=== PATIENT | female | born 1970 | race Caucasian/White ===

== ENCOUNTER 2024-11-26 14:23 | Emergency (ER) | payer BC, SELFPAY ==
--- OUTSIDE RECORDS SUMMARY | 2024-11-26 14:25 | XMS_ITS | Encounter Summary ---
Author Organization [facility] Address [address] [place] [address] Care Team Providers Care Staff Pharmacist Hospital Name Role Phone Raffaele Tanner MD Primary Care Provider [phone] Encounter Details Date Type Department Care Team (Latest Contact Info) Description 09/01/2008 Outpatient Historical [facility] Raffaele Gallegos MD [address] 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 Gender Identity Not on file Sexual Orientation Not on file documented as of this encounter Plan of Treatment Upcoming Encounters Date Type Department Care Team (Late st Contact Info) Description 01/09/2025 1:10 PM CDT Appointment [facility] [place] [facility] [address] [facility] [address] [place] [address] Raffaele Tanner MD [address] [place] [phone] documented as of this encounter Visit Diagnoses Diagnosis Elderly multigravida with antepartum condition or complication Visit for screening mammogram Other screening mammogram documented in this encounter Care Teams Staff Pharmacist Hospital Relationship Specialty Start Date End Date Raffaele Tanner MD PCP - General Internal Medicine 09/11/11 documented as of this encounter
--- OUTSIDE RECORDS SUMMARY | 2024-11-26 14:25 | XMS_ITS | Encounter Summary ---
Author Organization [facility] Address [address] [place] [address] Care Team Providers Care Brand Analyst Name Role Phone Raffaele Tanner MD Primary Care Provider [phone] Encounter Details Date Type Department Care Team (Latest Contact Info) Description 12/24/2005 Inpatient Historical [facility] Raffaele Gallegos MD [address] 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 Gender Identity Not on file Sexual Orientation Not on file documented as of this encounter Plan of Treatment Upcoming Encounters Date Type Department Care Team (Late st Contact Info) Description 01/09/2025 1:10 PM CDT Appointment [facility] [place] [facility] [address] [facility] [address] [place] [address] Raffaele Tanner MD [address] [place] [phone] documented as of this encounter Procedures Procedure Name Priority Date/Time Associated Diagnosis Comments CBC WITH DIFFERENTIAL Routine 12/23/2005 11:09 AM CDT CBC WITH DIFFERENTIAL Routine 12/23/2005 11:09 AM CDT URINALYSIS W/REFLEX MICROSCOPIC Routine 12/23/2005 11:09 AM CDT documented in this encounter Results * URINALYSIS (12/23/2005 11:09 AM CDT) COLOR UA Yellow INTERFACE SYSTEM CLARITY UA Clear Clear INTERFACE SYSTEM SPECIFIC GRAVITY UA 1.015 1.001 - 1.035 INTERFACE SYSTEM PH UA 6.5 5.0 - 8.0 INTERFACE SYSTEM LEUKOCYTE ESTERASE UA Negative Negative INTERFACE SYSTEM NITRITE UA Negative Negative INTERFACE SYSTEM PROTEIN UA Negative Negative INTERFACE SYSTEM GLUCOSE UA Negative Negative INTERFACE SYSTEM KETONES UA Negative Negative INTERFACE SYSTEM UROBILINOGEN UA <1 <=1 mg/dL INTE RFACE SYSTEM BILIRUBIN UA Negative Negative INTERFA CE SYSTEM BLOOD UA Negative Negative INTERFACE SYSTEM 12/23/2005 11:0 9 AM CDT Raffaele Gallegos MD URINE ORDERABLES Final Resul t Performing Organization Address [facility] Phone Number INTERFACE SYSTEM Refer to clinic/hospital department * CBC WITH DIFFERENTIAL (12/23/2005 11:09 AM CDT) NEUTROPHILS 70 45 - 70 % INTERFAC E SYSTEM LYMPHOCYTES 19 16 - 45 % INTERFAC E SYSTEM MONOCYTES 10 3 - 13 % INTERFACE SYSTEM EOSINOPHILS 1 0 - 7 % INTERFAC E SYSTEM BASOPHILS 0 0 - 2 % INTERFACE SYSTEM NEUTROPHIL ABSOLUTE 6.57 1.90 - 7.00 K/uL INTERFACE SYSTEM LYMPHOCYTE ABSOLUTE 1.74 0.70 - 4.50 K/uL INTERFACE SYSTEM MONOCYTE ABSOLUTE 0.90 0.10 - 1.30 K/uL INTERFACE SYSTEM EOSINOPHIL ABSOLUTE 0.08 0.00 - 0.70 K/uL INTERFACE SYSTEM BASOPHILS ABSOLUTE 0.03 0.00 - 0.20 K/uL INTERFACE SYSTEM 12/23/2005 11:0 9 AM CDT Raffaele Gallegos MD HEMATOLOGY ORDERABLES Final Result Performing Organization Address [facility] Phone Number INTERFACE SYSTEM Refer to clinic/hospital department * CBC WITH DIFFERENTIAL (12/23/2005 11:09 AM CDT) WBC 9.3 4.0 - 9.8 K/uL INTERFACE SYSTEM RBC 4.23 3.90 - 4.90 M/uL INTERFACE SYSTEM HEMOGLOBIN 12.7 11.8 - 14.8 g/dL INTERFACE SYSTEM HEMATOCRIT 37.1 35.5 - 44.0 % INTERFACE SYSTEM MCV 87.7 82.0 - 99.0 fL INTERFACE SYSTEM MCH 30.0 27.2 - 32.6 pg INTERFACE SYSTEM MCHC 34.2 31.5 - 35.5 % INTERFACE SYSTEM RDW 13.3 11.5 - 14.5 % INTERFACE SYSTEM RDW-STDEV 42.6 37.1 - 48.7 fL INTERFACE SYSTEM PLATELETS 254 140 - 350 K/uL INTERFACE SYSTEM MPV 11.2 9.3 - 12.4 fL INTERFACE SYSTEM 12/23/2005 11:0 9 AM CDT Raffaele Gallegos MD HEMATOLOGY ORDERABLES Final Result INTERFACE SYSTEM Refer to clinic/hospital department documented in this encounter Visit Diagnoses Diagnosis Previous delivery, delivered, with or without mention of antepartum condition- Primary Visit for screening mammogram Other screening mammogram documented in this encounter Care Teams Brand Analyst Relationship Specialty Start Date End Date Raffaele Tanner MD PCP - General Internal Medicine 09/11/11 documented as of this encounter
--- OUTSIDE RECORDS SUMMARY | 2024-11-26 14:25 | XMS_ITS | Data Portability ---
Author Organization [facility] JACKYKyle Bourne Glory Address [address] [facility] [place] [address] Care Team Providers Care Whipped Topping Mixer Name Role Phone MADELAINE TANNER Primary Care Provider [phone] Assessment Encounter Date Assessment Date Assessment LastModified by Organization Details LastModified Time 09/19/2024 09/19/2024 we will obtain her blood work that she had we will set up with Cologuard and she will get some exercises online for piriformis syndrome if she is not better in a few weeks she will report back and let me know otherwise she will see me in a year Not available 09/25/2024 15:36:09 Plan of Treatment Reminders Order Date Submit Date Provider Last Modified By Organization Details Last Modified Time Details Appointments ANNUAL 30 2025 01:00P Kyler Tanner MD Not available Not available Not available Lab noninvasi ve colorecta l cancer DNA + occult blood screening , QL, stool 2024 025 [facility] ipsy (Cologuard Orders Only), [address], [address], [place], [address], 10/08/2024 10:16:03 Referral None recorded. Procedures None recorded. Surgeries None recorded. Imaging None recorded. Medication Orders None recorded. Patient TargetsNo targets recorded. Patient InstructionsNo instructions recorded. Reason for Referral None Reported. Results Created Date Observation Date Name Description Value Unit Range Abnormal Flag Note LastModifiedBy Organization Detail LastModifiedTime 10/03/19 25 10/03/2024 COLOG UARD cologuard result reportable NEGATI VE negati ve normal NEGAT TIM TEST RESUL T. A negat tim Colog uard resul t indic ates a low likel ihood that a color ectal cance r (CRC) or advan sendy adeno ma (diana omato us polyp s with more advan sendy pre-m align ant featu res) is prese nt. The chanc e that a perso n with a negat tim Colog uard test has a color ectal cance r is less than 1 in 1500 (nega tive predi ctive value >99.9 %) or has an advan sendy adeno ma is less than 5.3% (nega tive predi ctive value 94.7% ). These data are based on a prosp ectiv e cross -sect ional study of ,00 0 indiv idual s at [facility] risk for color ectal cance r who were scree olga with both Colog uard and colon oscop y. (Pasha Mccallum et al, N Engl J Med 2014; 370(1 4):12 86-12 97) The breanne l value (refe rence range ) for this assay is negat tim. COLOG UARD RE-SC JEF HAMMOND RECOM MENDA TION: Perio dic color ectal cance r scree randall is an impor tant part of preve ntive healt hcare for asymp tomat ic indiv idual s at siler ge risk for color ectal cance r. Follo wing a negat tim Colog uard resul t, the Ameri can Cance r Socie ty and U.S. Multi -Soci ety Task Force scree randall guide lines recom mend a Colog uard re-sc reesheryl ng inter joce of 3 years . Refer ences : Ameri can Cance r Socie ty Guide line for Color ectal Cance r Scree randall: https ://venkat w.can cer.o rg/ca ncer/ colon -rect al-ca ncer/ detec tion- diagn osis- stagi ng/ac s-rec ommen datio ns.ht ml.; Anderson COYLE, Rasheeda hoyos CR, Radha CoatsK, Color ectal Cance r Scree randall: Recom menda tions for Physi cians and Patie nts from the U.S. Multi -Soci ety Task Force on Color ectal Cance r Screronald pereira , Am J Olivia muñoznte rolog y 2017; 112:1 016-1 030. TEST DESCR IPTIO N: Chase site algor ithmi c karsten sis of stool DNA-b jf sifuentes with hemog lobin immun oassa y. Quant itati ve value s of indiv idual bioma rkers are not repor table and are not assoc iated with indiv idual bioma rker resul t refer ence range s. Colog uard is inten ded for color ectal cance r scree randall of adult s of eithe r sex, 45 years or older , who are at [facility] for color ectal cance r (CRC) . Colog uard has been appro lore for use by the U.S. FDA. The perfo rmanc e of Colog uard was estab lishe d in a cross secti onal study of [facility] adult s aged 50-84 . Colog uard perfo rmanc e in patie nts ages 45 to 49 years was estim ated by sub-g roup karsten sis of near- age group s. Colon oscop ies perfo rmed for a posit tim resul t may find as the most clini freddy signi ximena t lesio n: color ectal cance r [4.0% ], advan sendy adeno ma (incl uding sessi le gisela herb polyp s great er than or equal to 1cm diame ter) [20%] or non- advan sendy adeno ma [31%] ; or no color ectal neopl ronan [45%] . These estim ates are deriv ed from a prosp ectiv e cross -sect ional scree randall study of 10,00 0 indiv idual s at [facility] risk for color ectal cance r who were scree olga with both Colog uard and colon oscop y. (Pasha Carmona al, N Engl J Med 2014; 370(1 4):12 86-12 97.) Colog uard may produ ce a false negat tim or false posit tim resul t (no color ectal cance r or preca ncero us polyp prese nt at colon oscop y follo w up). A negat tim Colog uard test resul t does not guara ntee the absen ce of CRC or advan sendy warren mensah (pre- cance r). The curre nt Colog uard scree randall inter joce is every 3 years . (Amer ican Cance r Socie ty and U.S. Multi -Soci ety Task Force ). Colog uard perfo rmanc e data in a 10,00 0 patie nt pivot al study using colon oscop y as the refer ence metho d can be acces sed at the follo wing locat ion: www.e xactl abs.c om/re sults . Addit ional descr iptio n of the Colog uard test proce ss, warni ngs and preca ution s can be found at www.c ologu flores.c om. Not Available ipsy (Cologuard Orders Only) [address], [place], [address], 10/08/2024 10:16:03 11/12/19 25 11/10/2024 CT, coron gerson calci um score No observ ation record ed. [facility] [address], [place], [address], 11/17/2024 12:19:25 Result Notes None recorded. Procedures Surgical History Date Name Laterality Status Provider Name and Address Organization Details Recorded Time 08/24/19 09 section completed SAGE Denis [facility] 09/19/2024 14:55:59 08/24/19 06 section completed SAGE Denis [facility] 09/19/2024 14:55:56 08/24/19 04 section completed SAGE Denis [facility] 09/19/2024 14:55:53 08/24/18 88 Tonsillectomy completed SAGE Denis - [facility] 09/19/2024 14:56:10 Imaging Results Imaging Date Name Status LastModified by Organiz ation Details LastModified Time 11/10/2024 CT, coronary calcium score completed [facility] [address], [place], [address], 11/17/2024 12:19:25 Procedure Notes None recorded. Medical Equipment None Reported. Allergies No known drug allergies Medications Name Sig Start Date Stop Date Status Note LastModified by Organization Details LastModified Time ergocalciferol (vitamin D2) 1,250 mcg (50,000 unit) capsule TAKE 1 CAPSULE BY MOUTH ONCE A WEEK active Not Available Not Available No t Available Vitals Date Recorded Body height Body mass index (BMI) Body weight Heart rate Oxygen saturation Oxygen saturation in Arterial blood by Pulse oximetry Systolic blood pressure Diastolic blood pressure Provider Name and Address Organization Details Last Updated DateTime 163.83 cm 22.2 kg/m2 85074.7 6 g 72 /min 97 % 97 % 120 mm[Hg] 64 mm[Hg] Nohemy Doss MA [facility] 15:05:15 Social History Question Answer Notes LastModified by Organizat ion Details LastModified Time Tobacco Smoking Status Never Smoker Nohemy Doss MA null, [facility] 09/19/2024 14:57:46 Do You Have An Advance Directive? Yes Information n ot available 09/19/2024 What Is Your Level Of Alcohol Consumption? Occasional Information not available 09/19/2024 Are You Blind Or Do You Have Difficulty Seeing? No Information n ot available 09/19/2024 What Is Your Level Of Caffeine Consumption? Occasional Information not available 09/19/2024 In The 14 Days Before Symptom Onset, Have You Had Close Contact With A Laboratory-confirm ed COVID-19 While That Case Was Ill? No Information n ot available 09/19/2024 In The 14 Days Before Symptom Onset, Have You Had Close Contact With A Person Who Is Under Investigation For COVID-19 While That Person Was Ill? No Information not available 09/19/2024 Have You Been To An Area Known To Be High Risk For COVID-19? No Information not available 09/19/2024 Are You Currently Employed? No Information not available 09/19/2024 Are You Deaf Or Do You Have Serious Difficulty Hearing? No Information not available 09/19/2024 What Type Of Diet Are You Following? REGULAR Information n ot available 09/19/2024 What Is The Highest Grade Or Level Of School You Have Completed Or The Highest Degree You Have Received? [id number] Information not available 09/19/2024 Are There Any Guns Present In Your Home? No Information not available 09/19/2024 What Was The Date Of Your Most Recent Tobacco Screening? 09/19/2024 Information not available 09/19/2024 What Is Your Relationship Status? Information not available 09/19/2024 Do You Use Your Seat Belt Or Car Seat Routinely? Yes Information not available 09/19/2024 Do You Have Smoke And Carbon Monoxide Detectors In Your Home? Yes Information not available 09/19/2024 Do You Feel Stressed (tense, Restless, Nervous, Or Anxious, Or Unable To Sleep At Night)? [id number] Information not available 09/19/2024 Do You Use Any Illicit Or Recreational Drugs? No Information not available 09/19/2024 Do You Use Sunscreen Routinely? Yes Information not available 09/19/2024 Has Tobacco Cessation Counseling Been Provided? No Information not available 09/19/2024 Do You Or Have You Ever Used Any Other Forms Of Tobacco Or Nicotine? No Information not available 09/19/2024 Sex: Female Functional Status Question Answer Note LastModified by Organization D etails LastModified Time Are you able to care for yourself? Yes Information n ot available 09/19/2024 What is your exercise level? None Information not available 09/19/2024 Mental Status None recorded. Family History Relationship Description Onset Age of this Age Resolved Age Notes LastModified by Organization Details LastModified Time Mother Malignant tumor of breast mebyma Not available 2024 14:56:42 Mother Disorder of thyroid gland mebyma Not available 2024 14:56:48 Mother Suspected endometrial cancer mebyma Not available 2024 14:57:32 Father Myocardial infarction mebyma Not available 09/19 14:57:01 Medical History Condition Response Coronary Artery Disease N Other N Atrial Fibrillation N High Blood Pressure N Kidney or Bladder Problems N Thyroid Problems N GI Problems N Depression N COPD N Blood Clots N Have you had a mammogram in the last yea r? N Skin Problems N Anemia N Heart Attack (ID) N Anxiety Disorder N Diabetes N Muscle, Joint, or Bone Problems N Seizures/Epilepsy N Have you had a colonoscopy in the last 1 0 years? N Acid Reflux (GERD) N Cancer N Stroke N Asthma Y Allergies N Have you had a PSA blood test in the las t year? N High Cholesterol N Hepatitis N Liver Disease N Headaches N Heart Failure N Osteoporosis N Gynecological HistoryNo gynecological history recorded. Obstetrics History GPAL:G 0 P 0 0 0 0 Immunizations Vaccine Type Date Status Note Provider Nam e and Address Organization Details Recorded Time Influenza, MDCK, quadrivalent, PF 1 completed Jonnie Tovar [place] null, [place] - [facility] 09/19/2024 16:05:33 Influenza, MDCK, quadrivalent, PF 3 completed Jonnie Tov[place] [facility] 09/19/2024 16:05:33 Influenza, MDCK, quadrivalent, PF 2 completed Jonnie Tov[place] [facility] 09/19/2024 16:05:33 zoster recombinant 3 completed SAGE Zavala, [place] [facility] 09/19/2024 16:05:33 zoster recombinant 2 completed Jonnie Tovar [place] [facility] 09/19/2024 16:05:33 COVID-19, mRNA, LNP-S, PF, 30 mcg/0.3 mL dose 1 completed Jonnie Tov[place] [facility] 09/19/2024 16:05:33 COVID-19, mRNA, LNP-S, PF, 30 mcg/0.3 mL dose 1 completed Jonnie Tov[place] [facility] 09/19/2024 16:05:33 COVID-19, mRNA, LNP-S, PF, 30 mcg/0.3 mL dose 1 completed Jonnie Tov[place] [facility] 09/19/2024 16:05:33 Influenza, split virus, trivalent, preservative 5 completed Jonnie Tovar [place] [facility] 09/19/2024 16:05:33 Influenza, split virus, trivalent, preservative 4 completed Jonnie Tov[place] [facility] 09/19/2024 16:05:33 Influenza, split virus, quadrivalent, PF 0 completed Jonnie [place]ov[place] [facility] 09/19/2024 16:05:33 Influenza, split virus, quadrivalent, PF 7 completed Jonnie Tvoar [place] [facility] 09/19/2024 16:05:33 Influenza, split virus, quadrivalent, PF 6 completed Jonnie Tov[place] [facility] 09/19/2024 16:05:33 Influenza, split virus, quadrivalent, PF 5 completed Jonnie Tov[place] [facility] 09/19/2024 16:05:33 Influenza, split virus, quadrivalent, PF 9 completed Jonnie Tov[place] [facility] 09/19/2024 16:05:33 Influenza, split virus, quadrivalent, PF 8 completed Jonnie Tovar [place] [facility] 09/19/2024 16:05:33 Past Encounters Encounter ID Performer Location Encounter Start Date Encounter Closed Date Diagnosis/Indication Diagnosis SNOMED-CT Code Diagnosis ICD10 Code Diagnosis Note [id number] Madelaine Tanner MD [facility] [place] [facility] [address] [place] [address] 09/19/2024 14:48:24 09/19/2024 15:59:41 Body mass index 20-24 - normal 683634693 Z68.22 Screening for malignant neoplasm of colon 866974643 Z12.11 Adult heal th examination 201766719 Z00.00 Left-sided piriformis syndrome 4547929686 62411 M54.32 Health Concerns Section Related Observation LastModified by Organization Detai ls LastModified Time None Recorded Concern Status LastModified by Organization Details LastModified Time None Recorded Advance Directives Directive Y: Payers Encounter Date Sequence Insurance Name Policy Number Policy Stout Covered Member ID Stout Member ID Guarantor Name 09/19/2024 1 [facility]: (PPO) [id number] [place] [id number] Rebeka Prabhakar Hosea Notes Date Note Type Note Provider Name and Address Organization Details Recorded Time 09/19/2024 text/html annual visit 53-year-old otherwise healthy comes in to [facility] care meds none allergies none surgeries tonsillectomy remote history of some asthma family history mother had breast cancer endometrial cancer and some thyroid disorder father with a history of ID she is does not smoke occasionally drinks no illicit drug use last [facility] was [facility], 20[facility] [place] has a little pain in her left buttock area that for several weeks that is feel like a tight not maybe radiates down the back of the leg from time to time hurts at times to sit on the buttock Madelaine Tanner MD Attn: Accounting[address] [facility], [place], [address], [facility] 09/25/2024 15:36:40 OBGyn Episode No OBEpisode recorded.
--- OUTSIDE RECORDS SUMMARY | 2024-11-26 14:25 | XMS_ITS | Data Portability ---
Author Organization [place] [facility] [employer], Main Office Address [address] [place] [address] Assessment Encounter Date Assessment Date Assessment LastModified by Organization Details LastModified Time 11/06/2022 11/06/2022 Blood work has been reviewed she will read double efforts on her vitamin-D her OLIVER was positive but not tired reflex panel to multiple autoimmune antibodies negative mild elevation of Sjogren's antibody [email or web address] Not available 11/06/2022 23:08:29 12/11/2022 12/11/2022 Some tizanidine to use at night continue with her stretching program x-ray her lumbar spine I told her given about 3 or 4 weeks if not better call back for re-evaluation and she is [email or web address] Not available 12/11/2022 14:02:05 Plan of Treatment Reminders Order Date Submit Date Provider Last Modified By Organization Details Last Modified Time Details Appointments None recorded. Lab None recorded. Referral None recorded. Procedures None recorded. Surgeries None recorded. Imaging None recorded. Medication Orders tizanidine 4 mg tablet 2022 023 [facility] [address] [facility], [place], [address], 12:08:19 Patient TargetsNo targets recorded. Patient InstructionsNo instructions recorded. Reason for Referral None Reported. Results Created Date Observation Date Name Description Value Unit Range Abnormal Flag Note LastModifiedBy Organization Detail LastModifiedTime 11/07/1911/07/2023 COLOG UARD cologuard result Cancel led - Order d not applic able Not Available [facility] (Cologuard Orders Only) [address], [place], [address], 11/07/2023 08:11:18 11/08/19 23 10/14/2022 MAMMO , scree randall, digit al, bilat eral No observ ation record ed. [email or web address] [facility] [address] [facility], [place], [address], 12/11/2022 12:47:21 Result Notes None recorded. Problems Name Problem SNOMED Code Status Onset Date Resolution Date Notes Provider Name and Address Organization Details Recorded Time Pain 13157768 Active Not Available [facility] [place] [facility] 3 14:47:09 Adult health examination Active 2021 Not Available [facility] [place] [facility] 3 14:47:10 Vitamin D deficiency 85488817 Active Not Available [facility] [place] [facility] 3 14:47:10 Pain in coccyx 84902989 Active Not Available [facility] [place] [facility] 3 14:47:10 Cough 44828069 Active Not Available [facility] [place] [facility] 3 14:47:10 Nasal congestion 82382438 Active Not Available [facility] [place] [facility] 3 14:47:10 Fatigue 66825587 Active 2022 Not Available [facility] [place] [facility] 3 14:47:10 Backache 436189176 Active 2022 LITTLE Zavala, [facility] [employer] [facility] 3 11:39:56 Low back pain 882324056 Active 2022 LITTLE Zavala, [employer] [facility] [employer] [facility] 3 14:15:37 Problem Notes None recorded. Procedures Surgical History Date Name Laterality Status Provider Name and Address Organization Details Recorded Time section completed Not Available [facility] 10/22/2022 14:44:28 Imaging Results Imaging Date Name Status LastModified by Organiz ation Details LastModified Time 10/14/2022 MAMMO, screening, digital, bilateral completed [email or web address] [facility] [address] [facility], [place], [address], 12/11/2022 12:47:21 Procedure Notes None recorded. Medical Equipment None Reported. Allergies No known drug allergies Medications Name Sig Start Date Stop Date Status Note LastModified by Organization Details LastModified Time nystatin 100,000 unit/mL oral suspension swish and swallow 5 ml tid x 7 days 06/25 completed Not Available Not Available Not Available azithromyci n 250 mg tablet TK 2 TS PO FOR 1 DAY THEN TK 1 T PO D FOR 4 DAYS 12/12 completed Not Available Not Available Not Available tizanidine 4 mg tablet TAKE 1 TABLET BY MOUTH ONCE DAILY AT BEDTIME active Not Available Not Available No t Available prednisone 20 mg tablet TK 3 TS D FOR 3 DAYSTHEN 2 TS D [id number] T D X3DAYS active Not Available Not Available No t Available Zyrtec 10 mg tablet Take 1 tablet every day by oral route. 2020 active Not Available Not Available Not Avai lable Protopic 0.1 % topical ointment 08/03 completed Not Available Not Available Not Available Valium 2 mg tablet take 1/2 tablet 40 minutes before procedure 07/05 completed Not Available Not Available Not Available montelukast 10 mg tablet TAKE 1 TABLET BY MOUTH EVERY DAY active Not Available Not Available No t Available ergocalcife rol (vitamin D2) 1,250 mcg (50,000 unit) capsule TK 1 C PO Q WK 10/02 completed Not Available Not Available Not Available clobetasol 0.05 % topical ointment 08/02 completed Not Available Not Available Not Available azelastine 137 mcg (0.1 %) nasal spray USE 2 SPRAY(S) IN EACH NOSTRIL TWICE DAILY active Not Available Not Available No t Available methylpredn isolone 4 mg tablets in a dose pack FPD 12/12 completed Not Available Not Available Not Available albuterol sulfate HFA 90 mcg/actuati on aerosol inhaler INHALE 2 PUFFS BY MOUTH EVERY 4 TO 6 HOURS NEEDED PER ASHTMA ACTION PLAN FOR 30 DAYS active Not Available Not Available No t Available spironolact one 50 mg tablet TK 1 T PO D 09/03 completed Not Available Not Available Not Available Spiriva with HandiHaler 18 mcg and inhalation capsules Inhale 1 capsule every day by inhalatio n route. 06/25 completed Not Available Not Available Not Available multivitami n WOMENS ONE BY MOUTH DAILY 2015 active Not Available Not Available Not Avai lable Calcium 600 + D(3) 600 mg-125 unit tablet Take by oral route. 10/02 completed Not Available Not Available Not Available Symbicort 80 mcg-4.5 mcg/actuati on HFA aerosol inhaler Inhale 2 puffs twice a day by inhalatio n route. active Not Available Not Available No t Available Atralin 0.05 % topical gel 07/19 completed Not Available Not Available Not Available Vitamin D 2,000 unit capsule Take 1 capsule every day by oral route. 2020 active Not Available Not Available Not Avai lable Aczone 5 % topical gel 12/12 completed Not Available Not Available Not Available Aczone 08/03 completed Not Available Not Available Not Available Acanya 1.2 %-2.5 % topical gel APPLY A PEA-SIZED AMOUNT BY TOPICAL ROUTE ONCE DAILY TO LIGHTLY COVERTHE ENTIRE FACE 08/03 completed Not Available Not Available Not Available B12 1000mg 2-3x a wk 2020 active Not Available Not Available Not Avai lable omega 3 183.3 mg-dha 75 mg-epa 91.6 mg-fish oil 306 mg capsule Take by oral route. 07/19 completed Not Available Not Available Not Available Retin-A Micro Pump 0.08 % topical gel APPLY A PEA-SIZED AMOUNT TO FACE EVERY NIGHT AT BEDTIME 11/13 completed PRN Not Available Not Available Not Available Flonase Allergy Relief 11/13 completed Not Available Not Available Not Available Aczone 7.5 % topical gel with pump APPLY TO ACNE AREAS EVERY NIGHT AT BEDTIME PRN 11/13 completed Not Available Not Available Not Available Onexton 1.2 % (1 % base)-3.75 % topical gel with pump APPLY TO ACNE AREAS EVERY MORNING PRN 11/13 completed Not Available Not Available Not Available Yuvafem 10 mcg vaginal tablet INSERT ONE TABLET VAGINALLY TWICE WEEKLY. LAST REFILL UNTIL PATIENT IS SEEN IN THE OFFICE active Not Available Not Available No t Available Fluzone Quad (PF) 60 mcg (15 mcg x 4)/0.5 mL IM syringe ADM 0.5ML IM UTD 11/06 completed Not Available Not Available Not Available Vitals Date Recorded Body mass index (BMI) Body height Oxygen saturation Oxygen saturation in Arterial blood by Pulse oximetry Heart rate Body temperature Body weight Systolic blood pressure Diastolic blood pressure Provider Name and Address Organization Details Last Updated DateTime 2 21.6 kg/m2 163.83 cm 98 % 98 % 76 /min 97.6 [degF] 24446.8 2 g 120 mm[Hg] 76 mm[Hg] Not Available [facility] [place] [facility] 3 14:45:46 Date Recorded Body height Body mass index (BMI) Body weight Body temperature Heart rate Systolic blood pressure Diastolic blood pressure Provider Name and Address Organization Details Last Updated DateTime 3 163.83 cm 21.3 kg/m2 64122.6 4 g 98.4 [degF] 85 /min 100 mm[Hg] 72 mm[Hg] Aarnza encarnacion RN [facility] [employer] 3 11:44:20 Date Recorded Body height Body mass index (BMI) Body weight Body temperature Heart rate Systolic blood pressure Diastolic blood pressure Provider Name and Address Organization Details Last Updated DateTime 3 163.83 cm 21.5 kg/m2 43276.2 3 g 98.2 [degF] 85 /min 104 mm[Hg] 70 mm[Hg] LITTLE Vazquez [employer] 3 11:04:30 Social History Question Answer Notes LastModified by Organizat ion Details LastModified Time Tobacco Smoking Status Never Smoker LITTLE Zavala [employer] [facility] [employer] 12/11/2022 10:56:06 Do You Have An Advance Directive? Yes [id number] Information not available 10/22/2022 What Is Your Level Of Alcohol Consumption? Occasional Information not available 11/06/2022 What Is Your Level Of Caffeine Consumption? Moderate Information not available 11/06/2022 What Is Your Code Status? Full Code Information not available 12/11/2022 In The 14 Days Before Symptom Onset, Have You Had Close Contact With A Laboratory-confir med COVID-19 While That Case Was Ill? No Information not available 12/11/2022 In The 14 Days Before Symptom Onset, Have You Had Close Contact With A Person Who Is Under Investigation For COVID-19 While That Person Was Ill? No Information not available 12/11/2022 Are You Currently Employed? No Information not available 12/11/2022 What Type Of Diet Are You Following? VEGETARIAN [id number] Information not available 10/22/2022 What Is The Highest Grade Or Level Of School You Have Completed Or The Highest Degree You Have Received? 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 No Information no t available 12/11/2022 What Is The Fluoride Status Of Your Home? Fluoridated Information not available 12/11/2022 Are There Any Guns Present In Your Home? No Information not available 12/11/2022 Do You Use Insect Repellent Routinely? Yes Information not available 12/11/2022 Where Do You Live? [facility] Information not available 12/11/2022 Do You Have A Medical Power Of Crystal Finisher? No Information not available 12/11/2022 What Was The Date Of Your Most Recent Tobacco Screening? 12/11/2022 [email or web address] Information not available 12/11/2022 How Many Children Do You Have? 1 Information not available 12/11/2022 Do You Have Any Pets? Yes Information not available 12/11/2022 What Is Your Relationship Status? Information not available 11/06/2022 Do You Use Your Seat Belt Or Car Seat Routinely? Yes Information not available 12/11/2022 Are You Sexually Active? Yes Information not available 12/11/2022 Do You Have Smoke And Carbon Monoxide Detectors In Your Home? Yes Information not available 12/11/2022 Are You Passively Exposed To Smoke? No Information no t available 12/11/2022 Are There Any Smokers In Your House? No Information not available 12/11/2022 Do You Feel Stressed (tense, Restless, Nervous, Or Anxious, Or Unable To Sleep At Night)? [id number] Information not available 12/11/2022 Do You Use Any Illicit Or Recreational Drugs? No Information not available 12/11/2022 Do You Use Sunscreen Routinely? Yes Information not available 12/11/2022 Has Tobacco Cessation Counseling Been Provided? No Information not available 12/11/2022 Have You Recently Traveled Abroad? No Information not available 12/11/2022 Do You Have Any Dietary Restrictions? No Information not available 12/11/2022 Do You Or Have You Ever Used Any Other Forms Of Tobacco Or Nicotine? No Information not available 12/11/2022 Sex: Female Functional Status Question Answer Note LastModified by Organizat ion Details LastModified Time What is your exercise level? Heavy [id number] Information not available 10/22/2022 Mental Status None recorded. Family History Relationship Description Onset Age of this Age Resolved Age Notes LastModified by Organization Details LastModified Time Mother Family history of malignant neoplasm Not available 11:40:42 Medical History Condition Response NO SIGNIFICANT PAST MEDICAL HISTORY N HAVE YOU BEEN HOSPITALIZED OR SEEN IN [facility] ER IN THE PAST YEAR ? N Gynecological HistoryNo gynecological history recorded. Obstetrics History GPAL:G 0 P 0 0 0 0 Immunizations Vaccine Type Date Status Note Provider [facility] e and Address Organization Details Recorded Time COVID-19, mRNA, LNP-S, PF, 10 mcg/0.2 mL dose, fina-sucrose 1 completed LITTLE Vazquez, [employer] [facility] [employer] 12/11/2022 11:29:36 COVID-19, mRNA, LNP-S, PF, 10 mcg/0.2 mL dose, fina-sucrose 1 completed LITTLE Vazquez, [employer] 12/11/2022 11:29:45 COVID-19, mRNA, LNP-S, PF, 10 mcg/0.2 mL dose, fina-sucrose 1 completed LITTLE Vazquez, [employer] [facility] [employer] 12/11/2022 11:29:52 influenza, unspecified formulation 3 completed LITTLE Zavala, [place] [facility] [employer] [facility] 06/17/2023 11:18:38 zoster, unspecified formulation 3 completed Not Available [facility] 10/22/2022 14:50:23 Influenza, split virus, trivalent, preservative 2 completed Not Available [facility] 10/22/2022 14:50:23 zoster recombinant 2 completed Not Available [facility] 10/22/2022 14:50:23 Influenza, split virus, quadrivalent, PF 9 completed Not Available [facility] 10/22/2022 14:50:23 Influenza, split virus, quadrivalent, PF 8 completed Not Available [facility] 10/22/2022 14:50:24 Influenza, split virus, quadrivalent, PF 7 completed Not Available [facility] 10/22/2022 14:50:24 Influenza, split virus, quadrivalent, PF 6 completed Not Available [facility] 10/22/2022 14:50:24 Influenza, split virus, quadrivalent, PF 5 completed Not Available [facility] 10/22/2022 14:50:24 Influenza, split virus, trivalent, preservative 4 completed Not Available [facility] 10/22/2022 14:50:24 Past Encounters Encounter ID Performer Location Encounter Start Date Encounter Closed Date Diagnosis/Indication Diagnosis SNOMED-CT Code Diagnosis ICD10 Code Diagnosis Note [id number] [facility] Internal Med [facility] [address] [facility] [address] [place] [address] 11/13/2021 00:00:00 12/22/2021 20:58:22 [id number] Raffaele Tanner MD [facility] Internal Med Juan Diego fishman [address] [place] [address] [place] [address] 11/06/2022 11:32:03 11/06/2022 13:44:04 Adult health examination 348612674 Z00.00 [id number] Raffaele Tanner MD [facility] Internal Med Juan Diego fishman [address] [place] [address] [place] [address] 12/11/2022 10:54:59 12/11/2022 11:40:19 Backache 444518564 M54.9 Health Concerns Section Related Observation LastModified by Organization Detai ls LastModified Time None Recorded Concern Status LastModified by Organization Details LastModified Time None Recorded Advance Directives Directive Y: Payers Encounter Date Sequence Insurance Name Policy Number Policy Stout Covered Member ID Stout Member ID Guarantor Name 11/06/2022 1 [place] [id number] [place] J[place] [id number] Rebeka Jc 12/11/2022 1 [place] [id number] El Jc [id number] Rebeka Jc Notes Date Note Type Note Provider Name and Address Organization Details Recorded Time 11/06/2022 text/html Annual visit doi ng okay issues were tweaked her back yesterday so that is bothering little better and sometimes her spider veins on legs her if she has had some fatigue for the past couple months but is getting better Raffaele Tanner MD [address], [address], [place], [address], [employer] 11/06/2022 23:09:23 12/11/2022 text/html back pain she benton d for 1 day when I saw her last but has persisted maybe a little bit better she feels a tightness in her lower back and she has had spread now to her iliac crest bilaterally from time to time kind of as a nervous irritation type of a pain no bowel or bladder problems us she stopped running as vigorously for while thought it was getting better for a couple weeks when she would lay down at night to sleep she had pretty significant pain. Pain does not wake her up at night no fever no chills she has not had any bowel or bladder incontinence no numbness down the legs Raffaele Tanner MD [address], [place], [address], [employer] 12/11/2022 14:02:23 OBGyn Episode No OBEpisode recorded.
--- OUTSIDE RECORDS SUMMARY | 2024-11-26 14:25 | XMS_ITS | Encounter Summary ---
Author Organization [facility] Address [address] [place] [address] Care Team Providers Care Cloth Neutralizer Name Role Phone Raffaele Tanner MD Primary Care Provider [phone] Encounter Details Date Type Department Care Team (Latest Contact Info) Description 07/31/2008 Outpatient Historical [facility] Raffaele Gallegos MD [address] 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 Gender Identity Not on file Sexual Orientation Not on file documented as of this encounter Plan of Treatment Upcoming Encounters Date Type Department Care Team (Late st Contact Info) Description 01/09/2025 1:10 PM CDT Appointment [facility] [place] A [address] [facility] [address] [place] [address] Raffaele Tanner MD [facility] [place] [address] documented as of this encounter Procedures Procedure Name Priority Date/Time Associated Diagnosis Comments US OB LTD 1 OR MORE FETUSES Timed Study 08/01/2008 11:58 AM AGENCY OWNER documented in this encounter Results * US OB LTD 1 OR MORE FETUSES (08/01/2008 11:58 AM AGENCY OWNER) Anatomical Region Laterality Modality Pelvis Other Narrative 08/01/2008 11:58 AM AGENCY OWNER Results in [employer] Procedure Note 03/01/2009 Results in [employer] Raffaele Gallegos MD US ORDERABLES Final Result documented in this encounter Visit Diagnoses Diagnosis Elderly multigravida with antepartum condition or complication Visit for screening mammogram Other screening mammogram documented in this encounter Care Teams Cloth Neutralizer Relationship Specialty Start Date End Date Raffaele Tanner MD PCP - General Internal Medicine 09/11/11 documented as of this encounter
--- OUTSIDE RECORDS SUMMARY | 2024-11-26 14:25 | XMS_ITS | Encounter Summary ---
Author Organization [facility] Address [address] [place] [address] Care Team Providers Care Datapower Consultant Name Role Phone Raffaele Tanner MD Primary Care Provider [phone] Encounter Details Date Type Department Care Team (Late st Contact Info) Description 12/14/2008 Outpatient Historical HIS PATIENT IN A BED Raffaele Gallegos MD [address] 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 Gender Identity Not on file Sexual Orientation Not on file documented as of this encounter Plan of Treatment Upcoming Encounters Date Type Department Care Team (Late st Contact Info) Description 01/09/2025 1:10 PM CDT Appointment [facility] [place] A [address] [facility] [address] [place] [address] Raffaele Tanner MD [address] [place] [address] documented as of this encounter Procedures Procedure Name Priority Date/Time Associated Diagnosis Comments CBC WITH DIFFERENTIAL Stat 12/15/2008 12:16 AM CDT TYPE AND SCREEN Routine 12/15/2008 12:15 AM CDT documented in this encounter Results * (ABNORMAL) CBC WITH DIFFERENTIAL (12/15/2008 12:16 AM CDT) RBC 3.86(L) 3.90 - 4.90 M/uL [facility] MCHC 32.7 31.5 - 35.5 % [facility] MCV 89.6 82.0 - 99.0 fL [facility] PLATELETS 265 140 - 350 K/uL [facility] HEMOGLOBIN 11.3(L) 11.8 - 14.8 g/dL [facility] RDW 14.0 11.5 - 14.5 % [facility] WBC 10.3(H) 4.0 - 9.8 K/uL [facility] MCH 29.3 27.2 - 32.6 pg [facility] MPV 11.9 9.3 - 12.4 fL [facility] HEMATOCRIT 34.6(L) 35.5 - 44.0 % [facility] RDW-STDEV 45.8 37.1 - 48.7 fL [facility] NEUTROPHILS 68 45 - 70 % [facility] NEUTROPHIL ABSOLUTE 6.99 1.90 - 7.00 K/uL [facility] EOSINOPHILS 1 0 - 7 % [facility] EOSINOPHIL ABSOLUTE 0.10 0.00 - 0.70 K/uL [facility] LYMPHOCYTES 23 16 - 45 % [facility] LYMPHOCYTE ABSOLUTE 2.32 0.70 - 4.50 K/uL [facility] BASOPHILS 0 0 - 2 % [facility] BASOPHILS ABSOLUTE 0.02 0.00 - 0.20 K/uL [facility] MONOCYTES 8 3 - 13 % [facility] MONOCYTE ABSOLUTE 0.86 0.10 - 1.30 K/uL [facility] Blood specimen (specimen) 12/15/2008 12:16 AM CDT 12/15/2008 12:23 AM CDT Raffaele Gallegos MD HEMATOLOGY ORDERABLES Edited Performing Organization Address [facility] de Phone Number INTERFACE SYSTEM Refer to clinic/hospital department [facility] CLIA# [id number] [address] [place] [address] * TYPE AND SCREEN (12/15/2008 12:15 AM CDT) HISTORY CHECK History Checked [facility] ABO/RH TYPE B Positive [facility] SPECIMEN LIFE 3 days from drawdate [facility] ANTIBODY SCREEN Negative [facility] Blood specimen (specimen) 12/15/2008 12:15 AM CDT Raffaele Gallegos MD BLOOD BANK ORDERABLES Edited Performing Organization Address [facility] de Phone Number INTERFACE SYSTEM Refer to clinic/hospital department [facility] CLIA# [id number] [address] [place] [address] documented in this encounter Visit Diagnoses Not on filedocumented in this encounter Care Teams Datapower Consultant Relationship Specialty Start Date End Date Raffaele Tanner MD PCP - General Internal Medicine 09/11/11 documented as of this encounter
--- OUTSIDE RECORDS SUMMARY | 2024-11-26 14:25 | XMS_ITS | Clinical Summary ---
Author Organization [facility] on Address [address] [facility] [place] [address] Phone Care Team Providers Care Manager Intensive Care Unit Name Role Phone Raffaele Tanner MD Primary Care Provider Allergies No known active allergies Medications montelukast (SINGULAIR) 10 mg tablet montelukast 10 mg tablet 0 Active albuterol HFA 90 mcg inhaler albuterol sulfate HFA 90 mcg/actuation aerosol inhaler Active multivitamin (MULTIPLE VITAMINS ORAL) multivitamin Ac tive cetirizine (ZyrTEC) 10 mg tablet every 24 hours. Acti ve cyanocobalamin , vitamin B-12, (VITAMIN B-12 ORAL) B12 1000mg 2-3x a wk Active estradioL (VAGIFEM) 10 mcg tablet Insert 1 Tablet (10 mcg) vaginally see administration instructions. ONE TABLET PER VAGINA AT HS TWICE WEEKLY 25 Tablet 3 1 Active ergocalciferol (Vitamin D2) 50,000 unit capsule Vitamin D 2,000 unit capsule Take 1 capsule every day by oral route. 1 Active estradioL (Yuvafem) 10 mcg tablet INSERT ONE TABLET VAGINALLY TWICE WEEKLY. 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 [facility] [address] [place] [address] Raffaele Gallegos MD Encounter for well woman exam with routine gynecological exam (Primary Dx); Screening for malignant neoplasm of cervix 11/09/2024 External Device Data STL ABSTRACTION Provider, Abstract 11/02/2024 External Device Data STL ABSTRACTION Provider, Abstract 11/01/2024 External Device Data STL ABSTRACTION Provider, Abstract 10/29/2024 External Device Data STL ABSTRACTION Provider, Abstract 10/29/2024 External Device Data STL ABSTRACTION Provider, Abstract 10/26/2024 External Device Data STL ABSTRACTION Provider, Abstract 10/12/2024 External Device Data STL ABSTRACTION Provider, Abstract 10/04/2024 External Device Data STL ABSTRACTION Provider, Abstract 10/04/2024 External Device Data STL ABSTRACTION Provider, Abstract 10/04/2024 External Device Data STL ABSTRACTION Provider, Abstract 09/15/2024 External Device Data STL ABSTRACTION Provider, Abstract from Last 3 Months Family History Medical History Relation Name Comments Breast Cancer Maternal Cousin Uterine Cancer Mother Breast Cancer Paternal Aunt Breast Cancer Paternal Cousin 1 Breast Cancer Paternal Cousin 2 Relation Name Status Comments Maternal Cousin Mother Paternal Aunt Paternal Cousin 1 Paternal Cousin 2 Social History Tobacco Use Types Packs/Day Years Used Date Smoking Tobacco: Never Smokeless Tobacco: Never Alcohol Use Standard Drinks/Week Comments Yes 0 (1 standard drink = 0.6 oz pur e alcohol) Social Comments No Sex and Gender Information Value Date Recorded Sex Assigned at Not on file 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 Gender Identity Not on file Sexual Orientation Not on file Last Filed Vital Signs Vital Sign Reading Time Taken Comments Blood Pressure 104/68 11/17/2024 1:08 PM CDT Pulse - - Temperature - - Respiratory Rate - - Oxygen Saturation - - Inhaled Oxygen Concentration - - Weight 59.4 kg (131 lb) 11/17/2024 1:08 PM CDT Height 162.6 cm (5' 4 ) 11/17/2024 1:08 PM CDT Body Mass Index 22.49 11/17/2024 1:08 PM CDT Plan of Treatment Upcoming Encounters Date Type Department Care Team (Late st Contact Info) Description 01/09/2025 1:10 PM CDT Appointment [facility] Medical [place] A [address] [place] [address] [facility] [place] [address] Health Maintenance Due Date Last Done Comments DTAP/TDAP/TD VACCINES (1 - Tdap) 1990 HEPATITIS B VACCINES (1 of 3 - 19+ 3-dose series) 1990 COLORECTAL SCREENING 2016 Colorectal Cancer Screening 2016 FIT-DNA Q 3 years 2016 FIT/FOBT Q 1 year 2016 Flex Sig/CT Colonography Q 5 years 2016 ZOSTER VACCINE (2 of 2) 08/19/2022 06/24/2022 INFLUENZA VACCINE (#1) 2024 , 07/19/2019, 07/22/2018, Additional history exists BREAST CANCER SCREENING 12/21/2024 12/22/19 24, 10/14/2022, 05/03/2021, Additional history exists HPV/Cotest (21-29) 06/05/2026 06/05/2021 HPV/Cotest (30-65) 06/05/2026 06/05/2021 CERVICAL CANCER SCREENING 11/18/2027 PAP SMEAR 11/18/2027 11/17/2024, 10/22, 10/29/2022, Additional history exists Preventative Visit- Commercial Completed 0 11/17/2024, 11/05/2023, 11/06/2022, Additional history exists Procedures Procedure Name Priority Date/Time Associated Diagnosis Comments CERV/VAG CYTO AGE BASED SCREEN PAP Routine 11/17/2024 1:53 PM CDT Screening for malignant neoplasm of cervix MAMMO 3D SALVADOR SCREEN BILAT W OR WO CAD Routine 12/22/2023 9:26 AM CDT Breast cancer screening by mammogram CERV/VAG CYTO SCREEN PAP RLFX HPV Routine 06/05/2021 3:17 PM CDT Screening for cervical cancer from Last 3 Months or Most Recently Relevant to Health Maintenance Results * CERV/VAG CYTO AGE BASED SCREEN PAP (11/17/2024 1:53 PM CDT) COMMENT (PAP): [facility] Comment: This order for age-based cervical cancer and STI screening follows ACOG guidelines(PB 168, 140, KEF941). See individual assays for performing site location. CLINICAL INFORMATION [facility] Comment:Routine exam LAST MENSTRUAL PERIOD [facility] [place] Comment:NONE GIVEN PREV PAP: [facility] Comment:NONE GIVEN PREV BX: [facility] [place] Comment:NONE GIVEN SOURCE [facility] Comment:Endocervix ADEQUACY: [facility] Comment:SATISFACTORY FOR BRIGIDA LUATION PAP INTERP [facility] Comment: Cytology Results: Negative for intraepithelial lesion or malignancy. Atrophic pattern; predominantly parabasal cells COMMENT (PAP TEST) [facility] [place] Comment: This Pap test has been evaluated with computer assisted technology. MOLDING MACHINE OPERATOR HELPER: [facility] [place] Comment: MMD, CT(ASCP) CT Screening Location: [place] [address] EXPLANATORY NOTE [facility] [place] Comment: EXPLANATORY NOTE: The Pap is a screening test for cervical cancer. It is not a diagnostic test and is subject to false negative and false positive results. It is most reliable when a satisfactory sample, regularly obtained, is submitted with relevant clinical findings and history, and when the Pap result is evaluated along with historic and current clinical information. HPV E6/E7 Not Detected Not Detected [facility] Comment: Methodology: Dental Secretary-Mediated Amplification This assay detects E6/E7 viral messenger RNA (mRNA) from 14 high-risk HPV types (16,18,31,33,35,39,45,51,52,56,58,59,66,68). Cervical sources are required for HPV testing. If a vaginal source from a patient who has had a total hysterectomy with removal of cervix was submitted, please contact the testing laboratory for alternative testing options. For additional information, please refer to [email or web address] [email or web address]/[email or web address] (This link if provided for information/ educational purposes only.) Test Performed [facility]: [facility] [address] [address] [place] [id number] Yamilka HARRIS Genital SWAB OF ENDOCERVIX / Unknown 11/17/2024 1:53 PM CDT 11/17/2024 11:42 PM CDT us Raffaele Gallegos MD PATHOLOGY/CYTOLOGY ORDERABLE S Final Result [facility] [phone] [facility] [address] [address] [place] [id number] * MAMMO SCRN BILAT 3D SALVADOR W OR WO CAD (12/22/2023 9:26 AM CDT) Anatomical Region Laterality Modality Breast Bilateral Mammography 12/22/2023 9:26 AM CDT Impressions 12/22/2023 11:56 AM CDT IMPRESSION: 1. No concerning findings. OVERALL FINAL ASSESSMENT: BI-RADS CATEGORY 1 - Negative. RECOMMENDATIONS: 1. Recommend annual mammography. 2. The patient may benefit from annual screening breast ultrasound given the density of the breast tissue. Narrative 12/22/2023 11:56 AM CDT BILATERAL SCREENING DIGITAL MAMMOGRAM WITH 3D TOMOSYNTHESIS AND CAD DATE: 12/22/2023 9:26 AM DICTATION LOCATION: [facility] HISTORY: Routine yearly screening exam. TECHNIQUE: Low-dose full-field digital breast tomosynthesis examination was performed of both breasts with 2D and 3D acquisitions. CAD was utilized. COMPARISON: Studies dating back to 07/02/2017 BREAST COMPOSITION: The breasts are heterogeneously dense, which may obscure small masses. FINDINGS: No concerning dominant masses, suspicious calcifications, parenchymal asymmetries or areas of architectural distortion are identified in either breast. Procedure Note Ney Tejada MD - 12/22/2023 BILATERAL SCREENING DIGITAL MAMMOGRAM WITH 3D TOMOSYNTHESIS AND CAD DATE: 12/22/2023 9:26 AM DICTATION LOCATION: [facility] HISTORY: Routine yearly screening exam. TECHNIQUE: Low-dose full-field digital breast tomosynthesis examination was performed of both breasts with 2D and 3D acquisitions. CAD was utilized. COMPARISON: Studies dating back to 07/02/2017 BREAST COMPOSITION: The breasts are heterogeneously dense, which may obscure small masses. FINDINGS: No concerning dominant masses, suspicious calcifications, parenchymal asymmetries or areas of architectural distortion are identified in either breast. IMPRESSION: 1. No concerning findings. OVERALL FINAL ASSESSMENT: BI-RADS CATEGORY 1 - Negative. RECOMMENDATIONS: 1. Recommend annual mammography. 2. The patient may benefit from annual screening breast ultrasound given the density of the breast tissue. Raffaele Gallegos MD MAMMO ORDERABLES Final Resul t * CERV/VAG CYTO SCREEN PAP RLFX HPV (06/05/2021 3:17 PM CDT) CLINICAL INFORMATION [facility] Comment:Information not prov ided LAST MENSTRUAL PERIOD [facility] Comment:INFORMATION NOT PROV IDED PREV PAP: [facility] Comment:INFORMATION NOT PROV IDED PREV BX: [facility] Comment:INFORMATION NOT PROV IDED SOURCE [facility] Comment:Endocervix ADEQUACY: [facility] Comment: Satisfactory for evaluation. Endocervical/transformation zone component present. Age and/or menstrual status not provided PAP INTERP [facility] Comment:Negative for intraep ithelial lesion or malignancy. COMMENT [facility] Comment: This Pap test has been evaluated with computer assisted technology. MOLDING MACHINE OPERATOR HELPER: [facility] Comment: BEF, CT(ASCP) CT screening location: [place] [address] [place] [address] SEE NOTE [facility] Comment: EXPLANATORY NOTE: The Pap is a screening test for cervical cancer. It is not a diagnostic test and is subject to false negative and false positive results. It is most reliable when a satisfactory sample, regularly obtained, is submitted with relevant clinical findings and history, and when the Pap result is evaluated along with historic and current clinical information. Test Performed at: [place] [address] [place] [address] Yamilka Beverly Vo Genital SWAB OF ENDOCERVIX / Unknown 06/05/2021 3:17 PM CDT 06/06/2021 12:40 AM CDT Raffaele Gallegos MD PATHOLOGY/CYTOLOGY ORDERABLE S Final Result [facility] [address] [place] [address] from Last 3 Months or Most Recently Relevant to Health Maintenance Insurance [facility] [place] [id number] [facility] BLUE ACCESS CHOICE Care Teams Manager Intensive Care Unit Relationship Specialty Start Date End Date Raffaele Tanner MD PCP - General Internal Medicine 09/11/11
--- OUTSIDE RECORDS SUMMARY | 2024-11-26 14:25 | XMS_ITS | CONTINUITY OF CARE DOCUMENT ---
Author Name yvette crawford Address Unknown Organization [facility] Office Address [address] [place] [address] Phone [phone] Care Team Providers Care Lead Ios Developer Name Role Phone Jonel HOFFMAN, Harris Unavailable [phone] MADELAINE WILKINS MD Unavailable [phone] MADELAINE WILKINS MD Unavailable [phone] PROBLEMS Condition Status Date Provider Notes Cardiovascular screening active Enma Felipe rd INSURANCE PROVIDERS Payer name Policy type / Coverage type [place] red alliance party ID SELF PAY TREATMENT PLAN Date Name CT, Coronary Calcium Score HISTORY OF PROCEDURES Procedure Date Procedure Name Provider Procedure Notes S tatus CT- Coronary CA score Harris Remy MD completed
--- OUTSIDE RECORDS SUMMARY | 2024-11-26 14:25 | XMS_ITS | Encounter Summary ---
Author Organization [facility] Address [address] [place] [address] Care Team Providers Care Flight Coordinator Name Role Phone Raffaele Tanner MD Primary Care Provider Encounter Details Date Type Department Care Team (Latest Contact Info) Description 06/07/2008 Outpatient Historical [facility] Raffaele Gallegos MD [address] 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 Gender Identity Not on file Sexual Orientation Not on file documented as of this encounter Plan of Treatment Upcoming Encounters Date Type Department Care Team (Late st Contact Info) Description 01/09/2025 1:10 PM CDT Appointment [facility] Medical [place] A [address] [facility] [address] [place] [address] Raffaele Tanner MD [address] [place] [phone] documented as of this encounter Procedures Procedure Name Priority Date/Time Associated Diagnosis Comments US OB LTD 1 OR MORE FETUSES Timed Study 06/07/2008 9:48 AM CDT documented in this encounter Results * US OB LTD 1 OR MORE FETUSES (06/07/2008 9:48 AM CDT) Anatomical Region Laterality Modality Pelvis Other Narrative 06/07/2008 9:48 AM CDT Results in [employer] Procedure Note 03/01/2009 Results in [facility] us Raffaele Gallegos MD US ORDERABLES Final Result documented in this encounter Visit Diagnoses Diagnosis Elderly multigravida with antepartum condition or complication Visit for screening mammogram Other screening mammogram documented in this encounter Care Teams Flight Coordinator Relationship Specialty Start Date End Date Raffalee Tanner MD PCP - General Internal Medicine 09/11/11 documented as of this encounter
--- OUTSIDE RECORDS SUMMARY | 2024-11-26 14:25 | XMS_ITS | Encounter Summary ---
Author Organization [facility] Address [address] [place] [address] Care Team Providers Care Inbound Sales Manager Name Role Phone Raffaele Tanner MD Primary Care Provider Encounter Details Date Type Department Care Team (Latest Contact Info) Description 12/10/2006 Outpatient Historical HIS [facility] LAISHA Gallegos, Raffaele Coats MD [address] 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 Gender Identity Not on file Sexual Orientation Not on file documented as of this encounter Plan of Treatment Upcoming Encounters Date Type Department Care Team (Late st Contact Info) Description 01/09/2025 1:10 PM CDT Appointment [facility] Medical [place] A [address] [facility] [address] [place] [address] Raffaele Tanner MD [address] [place] [phone] documented as of this encounter Visit Diagnoses Diagnosis Other screening mammogram- Primary Visit for screening mammogram Other screening mammogram documented in this encounter Care Teams Inbound Sales Manager Relationship Specialty Start Date End Date Raffaele Tanner MD PCP - General Internal Medicine 09/11/11 documented as of this encounter
[2024-11-26 14:31] VITALS: BP 119/76; PULSE 71; RESP 16; TEMP 36.4; O2SAT 100
--- OUTSIDE RECORDS SUMMARY | 2024-11-26 16:27 | XMS_ITS | Encounter Summary ---
Author Organization [facility] Address [address] [place] [address] Care Team Providers Care Manager Supplier Name Role Phone Raffaele Tanner MD Primary Care Provider [phone] Encounter Details Date Type Department Care Team (Late st Contact Info) Description 12/14/2008 Outpatient Historical HIS PATIENT IN A BED Raffaele Gallegos MD [address] 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 Medical [place] A [address] [facility] [address] [place] [address] Raffaele Tanner MD [address] [place] [phone] documented as of this encounter Procedures Procedure Name Priority Date/Time Associated Diagnosis Comments CBC WITH DIFFERENTIAL Stat 12/15/2008 12:16 AM CDT TYPE AND SCREEN Routine 12/15/2008 12:15 AM CDT documented in this encounter Results * (ABNORMAL) CBC WITH DIFFERENTIAL (12/15/2008 12:16 AM CDT) RBC 3.86(L) 3.90 - 4.90 M/uL [facility] MCHC 32.7 31.5 - 35.5 % [facility] MCV 89.6 82.0 - 99.0 fL [facility] PLATELETS 265 140 - 350 K/uL [facility] HEMOGLOBIN 11.3(L) 11.8 - 14.8 g/dL [facility] RDW 14.0 11.5 - 14.5 % [facility] WBC 10.3(H) 4.0 - 9.8 K/uL [facility] MCH 29.3 27.2 - 32.6 pg [facility] MPV 11.9 9.3 - 12.4 fL [facility] HEMATOCRIT 34.6(L) 35.5 - 44.0 % [facility] RDW-STDEV 45.8 37.1 - 48.7 fL [facility] NEUTROPHILS 68 45 - 70 % [facility] NEUTROPHIL ABSOLUTE 6.99 1.90 - 7.00 K/uL [facility] EOSINOPHILS 1 0 - 7 % [facility] EOSINOPHIL ABSOLUTE 0.10 0.00 - 0.70 K/uL [facility] LYMPHOCYTES 23 16 - 45 % [facility] LYMPHOCYTE ABSOLUTE 2.32 0.70 - 4.50 K/uL [facility] BASOPHILS 0 0 - 2 % [facility] BASOPHILS ABSOLUTE 0.02 0.00 - 0.20 K/uL [facility] MONOCYTES 8 3 - 13 % [facility] MONOCYTE ABSOLUTE 0.86 0.10 - 1.30 K/uL [facility] Blood specimen (specimen) 12/15/2008 12:16 AM CDT 12/15/2008 12:23 AM CDT Raffaele Gallegos MD HEMATOLOGY ORDERABLES Edited Performing Organization Address [facility] de Phone Number INTERFACE SYSTEM Refer to clinic/hospital department [facility] CLIA# [id number] [address] [place] [place] [address] * TYPE AND SCREEN (12/15/2008 12:15 AM CDT) HISTORY CHECK History Checked [facility] ABO/RH TYPE B Positive [facility] SPECIMEN LIFE 3 days from drawdate [facility] ANTIBODY SCREEN Negative [facility] Blood specimen (specimen) 12/15/2008 12:15 AM CDT Raffaele Gallegos MD BLOOD BANK ORDERABLES Edited Performing Organization Address [facility] de Phone Number INTERFACE SYSTEM Refer to clinic/hospital department [facility] CLIA# [id number] [address] [place] [address] documented in this encounter Visit Diagnoses Not on filedocumented in this encounter Care Teams Manager Supplier Relationship Specialty Start Date End Date Raffaele Tanner MD PCP - General Internal Medicine 09/11/11 documented as of this encounter
--- OUTSIDE RECORDS SUMMARY | 2024-11-26 16:27 | XMS_ITS | Encounter Summary ---
Author Organization [facility] Address [address] [place] [address] Care Team Providers Care Salesperson Art Objects Name Role Phone Raffaele Tanner MD Primary Care Provider [phone] Encounter Details Date Type Department Care Team (Latest Contact Info) Description 06/07/2008 Outpatient Historical [facility] Raffaele Gallegos MD [address] 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 Gender Identity Not on file Sexual Orientation Not on file documented as of this encounter Plan of Treatment Upcoming Encounters Date Type Department Care Team (Late st Contact Info) Description 01/09/2025 1:10 PM CDT Appointment [facility] Medical [place] A [address] [facility] [address] [place] [address] Raffaele Tanner MD [address] [place] [phone] documented as of this encounter Procedures Procedure Name Priority Date/Time Associated Diagnosis Comments US OB LTD 1 OR MORE FETUSES Timed Study 06/07/2008 9:48 AM CDT documented in this encounter Results * US OB LTD 1 OR MORE FETUSES (06/07/2008 9:48 AM CDT) Anatomical Region Laterality Modality Pelvis Other Narrative 06/07/2008 9:48 AM CDT Results in [employer] Procedure Note 03/01/2009 Results in [employer] us Raffaele Gallegos MD US ORDERABLES Final Result documented in this encounter Visit Diagnoses Diagnosis Elderly multigravida with antepartum condition or complication Visit for screening mammogram Other screening mammogram documented in this encounter Care Teams Salesperson Art Objects Relationship Specialty Start Date End Date Raffaele Tanner MD PCP - General Internal Medicine 09/11/11 documented as of this encounter
--- OUTSIDE RECORDS SUMMARY | 2024-11-26 16:27 | XMS_ITS | CONTINUITY OF CARE DOCUMENT ---
Author Name yvette crawford Address Unknown Organization [facility] Office Address [address] [place] [address] Phone [phone] Care Team Providers Care Dosimetrist Name Role Phone Jonel HOFFMAN, Harris Unavailable [phone] MADELAINE WILKINS MD Unavailable MADELAINE WILKINS MD Unavailable [phone] PROBLEMS Condition Status Date Provider Notes Cardiovascular screening active Enma Felipe rd INSURANCE PROVIDERS Payer name Policy type / Coverage type [place] red republican ID SELF PAY TREATMENT PLAN Date Name CT, Coronary Calcium Score HISTORY OF PROCEDURES Procedure Date Procedure Name Provider Procedure Notes S tatus CT- Coronary CA score Harris Remy MD completed
--- OUTSIDE RECORDS SUMMARY | 2024-11-26 16:27 | XMS_ITS | Encounter Summary ---
Author Organization [facility] Address [address] [place] [address] Care Team Providers Care Fish Dressing Machine Feeder Name Role Phone Raffaele Tanner MD Primary Care Provider [phone] Encounter Details Date Type Department Care Team (Latest Contact Info) Description 12/24/2005 Inpatient Historical [facility] Raffaele Gallegos MD [address] 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 Gender Identity Not on file Sexual Orientation Not on file documented as of this encounter Plan of Treatment Upcoming Encounters Date Type Department Care Team (Late st Contact Info) Description 01/09/2025 1:10 PM CDT Appointment [facility] [place] A [address] [facility] [address] [place] [address] Raffaele Tanner MD [address] [place] [phone] documented as of this encounter Procedures [...] ORDERABLES Final Resul t Performing Organization Address [facility] Phone Number INTERFACE SYSTEM Refer to clinic/hospital [...] HEMATOLOGY ORDERABLES Final Result Performing Organization Address [facility] Phone Number INTERFACE SYSTEM Refer to clinic/hospital [...] mammogram documented in this encounter Care Teams Fish Dressing Machine Feeder Relationship Specialty Start Date End Date Raffaele Tanner MD PCP - General Internal Medicine 09/11/11 documented as of this encounter
--- OUTSIDE RECORDS SUMMARY | 2024-11-26 16:27 | XMS_ITS | Encounter Summary ---
Author Organization [facility] Address [address] [place] [address] Care Team Providers Care Assistant Corporate Secretary Name Role Phone Raffaele Tanner MD Primary Care Provider [phone] Encounter Details Date Type Department Care Team (Latest Contact Info) Description 12/10/2006 Outpatient Historical HIS [facility] LAISHA Gallegos, Raffaele Coats MD [address] 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 Gender Identity Not on file Sexual Orientation Not on file documented as of this encounter Plan of Treatment Upcoming Encounters Date Type Department Care Team (Late st Contact Info) Description 01/09/2025 1:10 PM CDT Appointment [facility] Medical [place] A [address] [facility] [address] [place] [address] Raffaele Tanner MD [address] [place] [phone] documented as of this encounter Visit Diagnoses Diagnosis Other screening mammogram- Primary Visit for screening mammogram Other screening mammogram documented in this encounter Care Teams Assistant Corporate Secretary Relationship Specialty Start Date End Date Raffaele Tanner MD PCP - General Internal Medicine 09/11/11 documented as of this encounter
--- OUTSIDE RECORDS SUMMARY | 2024-11-26 16:27 | XMS_ITS | Encounter Summary ---
Author Organization [facility] Address [address] [place] [address] Care Team Providers Care Self Sealing Fuel Tank Repairer Name Role Phone Raffaele Tanner MD Primary Care Provider [phone] Encounter Details Date Type Department Care Team (Latest Contact Info) Description 07/31/2008 Outpatient Historical [facility] Raffaele Gallegos MD [address] 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 [place] [address] documented as of this encounter Procedures Procedure Name Priority Date/Time Associated Diagnosis Comments US OB LTD 1 OR MORE FETUSES Timed Study 08/01/2008 11:58 AM TURNAROUND ENGINEER documented in this encounter Results * US OB LTD 1 OR MORE FETUSES (08/01/2008 11:58 AM TURNAROUND ENGINEER) Anatomical Region Laterality Modality Pelvis Other Narrative 08/01/2008 11:58 AM TURNAROUND ENGINEER Results in [facility] Procedure Note 03/01/2009 Results in [facility] Raffaele Gallegos MD US ORDERABLES Final Result documented in this encounter Visit Diagnoses Diagnosis Elderly multigravida with antepartum condition or complication Visit for screening mammogram Other screening mammogram documented in this encounter Care Teams Self Sealing Fuel Tank Repairer Relationship Specialty Start Date End Date Raffaele Tanner MD PCP - General Internal Medicine 09/11/11 documented as of this encounter
--- OUTSIDE RECORDS SUMMARY | 2024-11-26 16:27 | XMS_ITS | Clinical Summary ---
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 See individual assays for performing site location. CLINICAL INFORMATION [facility] Comment:Routine exam LAST MENSTRUAL PERIOD [facility] Comment:NONE GIVEN PREV PAP: [facility] Comment:NONE GIVEN PREV BX: [facility] Comment:NONE GIVEN SOURCE [facility] Comment:Endocervix ADEQUACY: [facility] Comment:SATISFACTORY FOR BRIGIDA LUATION PAP INTERP [facility] Comment: Cytology Results: Negative for intraepithelial lesion or malignancy. Atrophic pattern; predominantly parabasal cells COMMENT (PAP TEST) [facility] Comment: This Pap test has been evaluated with computer assisted technology. CATHETER BUILDER: [facility] Comment: MMD, CT(ASCP) CT Screening Location: [place] [address] EXPLANATORY NOTE [facility] [place] Comment: EXPLANATORY NOTE: The Pap is a [...] information. HPV E6/E7 Not Detected Not Detected [facility] Comment: Methodology: Director Power-Mediated Amplification This assay detects E6/E7 viral messenger RNA (mRNA) from 14 high-risk HPV types (16,18,31,33,35,39,45,51,52,56,58,59,66,68). Cervical sources are required for HPV testing. If a vaginal source from a patient who has had a total hysterectomy with removal of cervix was submitted, please contact the testing laboratory for alternative testing options. For additional information, please refer to http://education.Proximetry.Captivate Network/faq/PUN918o7 (This link if provided for information/ educational purposes only.) Test Performed at: [facility] [address] [id number] Yamilka HARRIS Genital SWAB OF ENDOCERVIX / Unknown 11/17/2024 1:53 PM CDT 11/17/2024 11:42 PM CDT us Raffaele Gallegos MD PATHOLOGY/CYTOLOGY ORDERABLE S Final Result [facility] [phone] [facility] [id number] [phone] * MAMMO SCRN BILAT 3D [place] W [...] CAD DATE: 12/22/2023 9:26 AM DICTATION LOCATION: [facility] HISTORY: Routine yearly screening exam. TECHNIQUE: Low-dose [...] CAD DATE: 12/22/2023 9:26 AM DICTATION LOCATION: [facility] HISTORY: Routine yearly screening exam. TECHNIQUE: Low-dose [...] HPV (06/05/2021 3:17 PM CDT) CLINICAL INFORMATION [facility] Comment:Information not prov ided LAST MENSTRUAL PERIOD [facility] Comment:INFORMATION NOT PROV IDED PREV PAP: [facility] Comment:INFORMATION NOT PROV IDED PREV BX: [facility] Comment:INFORMATION NOT PROV IDED SOURCE [facility] Comment:Endocervix ADEQUACY: [facility] Comment: Satisfactory for evaluation. Endocervical/transformation zone component present. Age and/or menstrual status not provided PAP INTERP [facility] Comment:Negative for intraep ithelial lesion or malignancy. COMMENT [facility] Comment: This Pap test has been evaluated with computer assisted technology. CATHETER BUILDER: [facility] Comment: BEF, CT(ASCP) CT screening location: [place] [address] [place] [id number] SEE NOTE [facility] Comment: EXPLANATORY NOTE: The Pap is a screening test for cervical cancer. It is not a diagnostic test and is subject to false negative and false positive results. It is most reliable when a satisfactory sample, regularly obtained, is submitted with relevant clinical findings and history, and when the Pap result is evaluated along with historic and current clinical information. Test Performed at: [place] [address] [place] [phone] Yamilka Beverly [facility] Genital SWAB OF ENDOCERVIX / Unknown 06/05/2021 3:17 PM CDT 06/06/2021 12:40 AM CDT Raffaele Gallegos MD PATHOLOGY/CYTOLOGY ORDERABLE S Final Result [facility] [address] [place] [address] from Last 3 Months or Most Recently Relevant to Health Maintenance Insurance [facility] [address] [facility] BLUE ACCESS CHOICE Care Teams Extension Service Agent Relationship Specialty Start Date End Date Raffaele Tanner MD PCP - General Internal Medicine 09/11/11
--- OUTSIDE RECORDS SUMMARY | 2024-11-26 16:27 | XMS_ITS | Encounter Summary ---
Author Organization [facility] Address [address] [place] [address] Care Team Providers Care Rn Chronic Name Role Phone Raffaele Tanner MD Primary Care Provider Encounter Details Date Type Department Care Team (Latest Contact Info) Description 09/01/2008 Outpatient Historical [facility] Raffaele Gallegos MD [address] 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 Gender Identity Not on file Sexual Orientation Not on file documented as of this encounter Plan of Treatment Upcoming Encounters Date Type Department Care Team (Late st Contact Info) Description 01/09/2025 1:10 PM CDT Appointment [facility] [place] [facility] [place] A [address] [facility] [address] [place] [address] Raffaele Tanner MD [address] [place] [phone] documented as of this encounter Visit Diagnoses Diagnosis Elderly multigravida with antepartum condition or complication Visit for screening mammogram Other screening mammogram documented in this encounter Care Teams Rn Chronic Relationship Specialty Start Date End Date Raffaele Tanner MD PCP - General Internal Medicine 09/11/11 documented as of this encounter
--- NOTE | 2024-11-26 16:51 | ED_ITS ---
HPI - General Adult General Chief complaint: Unspecified Stated complaint: REQUESTING RABIES SHOT, BAT EXPOSURE Time Seen by Provider: 11/26/24 15:56 Source: patient Mode of arrival: ambulatory Limitations: no limitations History of Present Illness HPI narrative: 54-year-old female presenting to the ED for chief complaint of possible bat exposure. They explained that the that was seen flying across the bedroom while they were awake on Thursday evening about 3 days ago, 11/26/2024. They were in contact with the PCP who recommends coming to the ER to initiate rabies vaccine out of an abundance of precaution. They deny any bite figueroa or specific close exposure to the bat. Related Data Allergies Allergy/AdvReac Type Severity Reaction Status Date / Time No Known Allergies Allergy Mild Verified 11/26/24 14:23 Review of Systems Review of Systems: All systems as dictated in HPI Exam Narrative: GENERAL: Well-appearing, well-nourished, and in no acute distress. HEAD: Normocephalic, atraumatic. EYES: PERRLA and EOMI. ENT: Nares clear, no rhinorrhea or epistaxis. Mucous membranes moist. Oropharynx without tonsillar hypertrophy exudate or other lesions. NECK: Supple. No adenopathy or masses. CHEST: No respiratory distress. Clear to auscultation. No wheezes rales or rhonchi HEART: Regular rate and rhythm. No murmur heard. Normal peripheral pulses. ABDOMEN: Soft, nontender, nondistended, normal active bowel sounds. MSK: Normal range of motion. No edema. SKIN: Warm, dry, no rash. NEURO: Alert and oriented x4. No focal deficits. PSYCH: Normal mood and affect. Course Vital Signs Vital signs: Vital Signs Temperature 97.6 F 11/26/24 14:31 Pulse Rate 71 11/26/24 14:31 Respiratory Rate 16 11/26/24 14:31 Blood Pressure 119/76 11/26/24 14:31 Pulse Oximetry 100 11/26/24 14:31 Oxygen Delivery Room Air 11/26/24 14:31 Temperature 97.6 F 11/26/24 14:31 Pulse Rate 71 11/26/24 14:31 Respiratory Rate 16 11/26/24 14:31 Blood Pressure 119/76 11/26/24 14:31 Pulse Oximetry 100 11/26/24 14:31 Oxygen Delivery Room Air 11/26/24 14:31 Medical Decision Making MDM Narrative Medical decision making narrative: 54-year-old female presenting for rabies prophylaxis after possible bat exposure. She has no bite ronny wounds or need for immunoglobulin today. She was given script pad for subsequent rabies vaccines. Vital Signs Vital Signs: Vital Signs Temperature 97.6 F 11/26/24 14:31 Pulse Rate 71 11/26/24 14:31 Respiratory Rate 16 11/26/24 14:31 Blood Pressure 119/76 11/26/24 14:31 Pulse Oximetry 100 11/26/24 14:31 Oxygen Delivery Room Air 11/26/24 14:31 Temperature 97.6 F 11/26/24 14:31 Pulse Rate 71 11/26/24 14:31 Respiratory Rate 16 11/26/24 14:31 Blood Pressure 119/76 11/26/24 14:31 Pulse Oximetry 100 11/26/24 14:31 Oxygen Delivery Room Air 11/26/24 14:31 Discharge Plan Discharge Clinical Impression: Need for post exposure prophylaxis for rabies Patient Disposition: Home, Self-Care Condition: Stable Instructions: Antibiotic Form Additional Instructions: Follow-up with [facility] for rabies series as marked on the prescription pad. If you have any new or worsening symptoms please return to the ER for further evaluation. Patient Language: American Follow-up/Referrals: Ciro,MD Raffaele [Primary Care Provider] - Time of Disposition: 17:04
[2024-11-26] MEDS: RABIES VACCINE (RABAVERT) 2.5 UNITS VIAL IM (17:21)
== END 2024-11-26 17:28 | disposition home or self-care (01) ==
PROVIDERS: Emergency Provider Physician Assistant; PCP Internal Medicine
DX: Z29.14 Encounter for prophylactic rabies immune globulin (principal); Z23 Encounter for immunization
CPT/HCPCS: 90471; 90675; 99282

== ENCOUNTER 2024-12-10 07:33 | Outpatient (RCR) | payer BC, SELFPAY ==
[2024-11-29] MEDS: RABIES IMMUNE GLOBULIN 1154 UNITS IM (08:10)
[2024-11-29] MEDS: RABIES VACCINE (RABAVERT) 2.5 UNITS VIAL IM (08:10)
== END 2025-02-27 23:59 | disposition home or self-care (01) ==
LOC: ANHVASCINF 07:33
PROVIDERS: PCP Internal Medicine; Visit Provider Physician Assistant
DX: Z20.3 Contact with and (suspected) exposure to rabies (principal); Z29.14 Encounter for prophylactic rabies immune globulin
CPT/HCPCS: 90375; 90471; 90675; 96372